=== PATIENT | female | born 1990 | race Caucasian/White ===

== ENCOUNTER 2016-06-23 20:10 | Emergency (ER) | payer MEDICAID ==
[2016-06-23 20:18] VITALS: BP 132/72
[2016-06-23] MEDS ORDERED: Ciprofloxacin 500 MG Tab PO ONE (21:26)
--- NOTE | 2016-06-23 21:30 | EDM.PDOC ---
ED HPI GENERAL MEDICAL PROBLEM - General Chief Complaint: General Stated Complaint: PAIN IN GLAND Time Seen by Provider: 06/23/16 20:14 Source of Information: Reports: Patient History Limitations: Reports: No Limitations - History of Present Illness INITIAL COMMENTS - FREE TEXT/NARRATIVE: 25 years old w f come to the ed with pain at her r flank and r lower abd. Pt had dysuria. Pt was seen for same last Monday foe same. CT abd/pelvis showed a mass at her r adrenal at that time. Pt will see a specialist on 07/05/2016 to evaluate the adrenal mass. UA and Blood work was not done last Monday. Pt denied or trauma. No N/V/D. pt stated she had Kidney stones in the past. Pt denied other acute medical issues. Onset: Gradual, Unknown/Unsure Onset Date: 06/17/16 Onset Time: 21:00 Duration: Day(s): Location: Reports: Abdomen Quality: Reports: Burning, Dull Severity: Moderate Improves with: Reports: None Worsens with: Reports: Other (urinating) Context: Reports: Other Associated Symptoms: Reports: No Other Symptoms Left Upper Mid-Anterior Abdomen Pain Score (Numeric/FACES): 8 - Related Data Allergies Allergy/AdvReac Type Severity Reaction Status Date / Time No Known Allergies Allergy Verified 11/29/13 19:32 Home Meds: Home Meds Haloperidol [Haloperidol] 1 mg PO BID 10/17/13 [History] Acetaminophen [Tylenol] 650 mg PO Q4H PRN 11/29/13 [History] Vit #76/Iron,Carb/Fa [Prenatabs Rx] 1 tab PO DAILY 11/29/13 [History] Ciprofloxacin HCl [Cipro] 500 mg PO BID #20 tablet 06/23/16 [Rx] Phenazopyridine HCl [Pyridium] 200 mg PO QAM #9 tablet 06/23/16 [Rx] Past Medical History - Past Health History Medical/Surgical History: Denies Medical/Surgical History Social & Family History - Tobacco Use Years of Tobacco use: 9 - Recreational Drug Use Recreational Drug Use: No ED ROS GENERAL - Review of Systems Review Of Systems: See Below Constitutional: Reports: No Symptoms HEENT: Reports: No Symptoms Respiratory: Reports: No Symptoms Cardiovascular: Reports: No Symptoms Endocrine: Reports: No Symptoms GI/Abdominal: Reports: Abdominal Pain : Reports: Dysuria Musculoskeletal: Reports: No Symptoms Skin: Reports: No Symptoms Neurological: Reports: No Symptoms Psychiatric: Reports: No Symptoms Hematologic/Lymphatic: Reports: No Symptoms Immunologic: Reports: No Symptoms ED EXAM, GENERAL - Physical Exam Exam: See Below Exam Limited By: No Limitations General Appearance: Alert, WD/WN, Mild Distress, Obese (morbid) Eye Exam: Bilateral Eye: Normal Inspection Ears: Normal External Exam Ear Exam: Bilateral Ear: Auricle Normal Nose: Normal Inspection, Normal Mucosa, No Blood Throat/Mouth: Normal Inspection Head: Atraumatic, Normocephalic Neck: Normal Inspection, Supple, Non-Tender, Full Range of Motion Respiratory/Chest: No Respiratory Distress, Lungs Clear, Normal Breath Sounds, No Accessory Muscle Use Cardiovascular: Normal Peripheral Pulses Peripheral Pulses: 1+: Femoral (L), Femoral (R) GI/Abdominal: Normal Bowel Sounds, Tender (suprapubic area) (Female) Exam: Deferred Rectal (Female) Exam: Deferred Back Exam: Normal Inspection, Full Range of Motion Extremities: Normal Inspection, Normal Range of Motion, Non-Tender, No Pedal Edema Neurological: Alert, Oriented, CN II-XII Intact, Normal Cognition, Normal Gait Psychiatric: Normal Affect, Normal Mood Skin Exam: Warm, Dry Lymphatic: No Adenopathy Course - Vital Signs Text/Narrative:: 25 years old w f , smoker, come to the ed with pain at her r flank and r lower abd. Pt had dysuria. Pt was seen for same last Monday foe same. CT abd/pelvis showed a mass at her r adrenal at that time. Pt will see a specialist on 2016. UA and Blood work was not done last Monday. Pt denied or trauma. No N/V/D. pt stated she had Kidneystones in the past. Pt denied other acute medical issues. PE: Morbid obese, suprapubic tenderness. Labs: UA pos for UTI. WBC was nl Impression: UTI with bladder spasm, can not r/o pyelonephritis Tx: Pyridium, Cipro Reexam: Improved, Pt was texting the entire time while she was in the ed. Plan: D/C with instructions Last Recorded V/S: Last Vital Signs Temp 37.0 C 06/23/16 20:14 Pulse 92 06/23/16 20:14 Resp 18 06/23/16 20:14 BP 132/72 06/23/16 20:14 Pulse Ox - Orders/Labs/Meds Orders: Active Orders 24 hr Category Date Time Status CULTURE URINE [RM] Stat Lab 06/23/16 21:00 Received Labs: Laboratory Tests 06/23/16 06/23/16 06/23/16 Range/Units 21:00 21:00 21:00 WBC 9.7 (4.5-12.0) X10-3/uL RBC 4.79 (3.23-5.20) x10(6)uL Hgb 12.9 (11.5-15.5) g/dL Hct 39.3 (30.0-51.3) % MCV 82.0 (80-96) fL MCH 27.0 L (27.7-33.6) pg MCHC 32.9 (32.2-35.4) g/dL RDW 14.3 (11.5-15.5) % Plt Count 247 (125-369) X10(3)uL MPV 10.0 (7.4-10.4) fL Neut % (Auto) 68.3 (46-82) % Lymph % (Auto) 24.2 (13-37) % [place] % (Auto) 5.7 (4-12) % Eos % (Auto) 1 (1.0-5.0) % Baso % (Auto) 1 (0-2) % Neut # (Auto) 6.7 (1.6-8.3) # Lymph # (Auto) 2.3 (0.6-5.0) # [place] # (Auto) 0.6 (0.0-1.3) # Eos # (Auto) 0.1 (0.0-0.8) # Baso # (Auto) 0.0 (0.0-0.2) # Sodium 139 (135-145) mmol/L Potassium 3.6 (3.5-5.3) mmol/L Chloride 109 (100-110) mmol/L Carbon Dioxide 21 L (23-29) mmol/L BUN 8 (5-20) mg/dL Creatinine 0.5 L (0.6-1.3) mg/dL Est Cr Clr Drug Dosing TNP Estimated GFR (MDRD) > 60 (>60) BUN/Creatinine Ratio 16.0 (9-20) Glucose 92 (80-116) mg/dL Calcium 8.7 (8.6-10.2) mg/dL Urine Color (YELLOW) Urine Appearance (CLEAR) Urine pH (5.0-6.5) Ur Specific [place] (1.010-1.025) Urine Protein (NEGATIVE) mg/dL Urine Glucose (UA) (NEGATIVE) mg/dL Urine Ketones (NEGATIVE) mg/dL Urine Occult Blood (NEGATIVE) Urine Nitrite (NEGATIVE) Urine Bilirubin (NEGATIVE) Urine Urobilinogen (NEGATIVE) mg/dL Ur Leukocyte Esterase (NEGATIVE) Urine RBC (0) Urine WBC (0) Ur Squamous Epith Cells (NS,R,O) Urine Bacteria (NS) Urine Mucus (NS) Urine HCG, Qual Negative (NEGATIVE) 06/23/16 Range/Units 21:00 WBC (4.5-12.0) X10-3/uL RBC (3.23-5.20) x10(6)uL Hgb (11.5-15.5) g/dL Hct (30.0-51.3) % MCV (80-96) fL MCH (27.7-33.6) pg MCHC (32.2-35.4) g/dL RDW (11.5-15.5) % Plt Count (125-369) X10(3)uL MPV (7.4-10.4) fL Neut % (Auto) (46-82) % Lymph % (Auto) (13-37) % [place] % (Auto) (4-12) % Eos % (Auto) (1.0-5.0) % Baso % (Auto) (0-2) % Neut # (Auto) (1.6-8.3) # Lymph # (Auto) (0.6-5.0) # [place] # (Auto) (0.0-1.3) # Eos # (Auto) (0.0-0.8) # Baso # (Auto) (0.0-0.2) # Sodium (135-145) mmol/L Potassium (3.5-5.3) mmol/L Chloride (100-110) mmol/L Carbon Dioxide (23-29) mmol/L BUN (5-20) mg/dL Creatinine (0.6-1.3) mg/dL Est Cr Clr Drug Dosing Estimated GFR (MDRD) (>60) BUN/Creatinine Ratio (9-20) Glucose (80-116) mg/dL Calcium (8.6-10.2) mg/dL Urine Color Yellow (YELLOW) Urine Appearance Slightly cloudy (CLEAR) Urine pH 5.0 (5.0-6.5) Ur Specific [place] 1.025 (1.010-1.025) Urine Protein Negative (NEGATIVE) mg/dL Urine Glucose (UA) Normal (NEGATIVE) mg/dL Urine Ketones Negative (NEGATIVE) mg/dL Urine Occult Blood Negative (NEGATIVE) Urine Nitrite Negative (NEGATIVE) Urine Bilirubin Small H (NEGATIVE) Urine Urobilinogen 1 H (NEGATIVE) mg/dL Ur Leukocyte Esterase Small H (NEGATIVE) Urine RBC 5-10 (0) Urine WBC 5-10 (0) Ur Squamous Epith Cells Moderate H (NS,R,O) Urine Bacteria Many H (NS) Urine Mucus Moderate H (NS) Urine HCG, Qual (NEGATIVE) Meds: Medications Discontinued Medications Generic Name Dose Route Start Last Admin Trade Name Lilly PRN Reason Stop Dose Admin Ciprofloxacin 500 mg 06/23/16 21:26 06/23/16 21:34 Ciprofloxacin Hcl PO 06/23/16 21:27 500 mg ONETIME ONE Administration Phenazopyridine HCl 200 mg 06/23/16 21:32 06/23/16 21:47 Urinary Pain Relief PO 06/23/16 21:33 200 mg ONETIME STA Administration Departure - Departure Time of Disposition: 21:57 Disposition: Home, Self-Care 01 Condition: good Clinical Impression: UTI (urinary tract infection) Qualifiers: Urinary tract infection type: acute cystitis Hematuria presence: without hematuria Qualified Code(s): N30.00 - Acute cystitis without hematuria - Discharge Information Prescriptions: Ciprofloxacin HCl [Cipro] 500 mg PO BID #20 tablet Phenazopyridine HCl [Pyridium] 200 mg PO QAM #9 tablet Instructions: Urinary Tract Infection, Adult, [id number] Referrals: PCP,None [Primary Care Provider] - Forms: ED Department Discharge Additional Instructions: Please take the meds as recommended, please quit tobacco use, please follow up, come back if worse. - My Orders Last 24 Hours: My Active Orders 06/23/16 21:00 CULTURE URINE [RM] Stat - Assessment/Plan Last 24 Hours: My Active Orders 06/23/16 21:00 CULTURE URINE [RM] Stat
[2016-06-23] MEDS ORDERED: Phenazopyridine 95 MG Tab PO STA (21:32)
== END 2016-06-23 22:25 | disposition home or self-care (01) ==
LOC: FB.ED 20:10
DX: N30.00 Acute cystitis without hematuria (principal); Z79.899 Other long term (current) drug therapy
CPT/HCPCS: 36415; 80048; 81001; 81025; 85025; 87086; 99284; A9270

== ENCOUNTER 2016-12-19 21:06 | Emergency (ER) | payer MEDICAID ==
[2016-12-19 21:12] VITALS: BP 120/88
--- NOTE | 2016-12-19 22:05 | EDM.PDOC ---
ED HPI GENERAL MEDICAL PROBLEM - General Chief Complaint: Genitourinary Problem Stated Complaint: BLADDER INFECTION Time Seen by Provider: 12/19/16 21:35 Source of Information: Reports: Patient History Limitations: Reports: No Limitations - History of Present Illness INITIAL COMMENTS - FREE TEXT/NARRATIVE: c/o UTI pt with h/o medullary sponge kidney and frequent UTIs and pyelo, also with kidney stones, last passed one 1w ago at [facility] 4d ago with dysuria and bladder pressure, dx UTI, tx with cephalexin x 10d, clinic called today to say UC showed E coli sensitive to cephalexin and to continue taking it dysuria gone, still with bladder pressure and occasional back pain boyfriend here, from [place], he reports that she has been more lethargic pt told RN that she uses meth but does not want boyfriend to know, pt has 3 children who stay elsewhere, pt not working, has no insurance no f/c/d Right Abdomen Pain Score (Numeric/FACES): 4 - Related Data Allergies Allergy/AdvReac Type Severity Reaction Status Date / Time No Known Allergies Allergy Verified 12/19/16 21:08 Past Medical History - Past Health History Medical/Surgical History: Denies Medical/Surgical History Social & Family History - Tobacco Use Smoking Status *Q: Current Every Day Smoker Years of Tobacco use: 11 Packs/Tins Daily: 1.5 - Caffeine Use Caffeine Use: Reports: None - Recreational Drug Use Recreational Drug Use: No Recreational Drug Type: Reports: Methamphetamine Other Recreational Drug Type: this AM at 0400 (inhaled) Recreational Drug Use Frequency: Weekly ED ROS GENERAL - Review of Systems Review Of Systems: See Below Constitutional: Reports: No Symptoms, Chills. Denies: Fever, Malaise HEENT: Reports: No Symptoms Respiratory: Reports: No Symptoms Cardiovascular: Reports: No Symptoms Endocrine: Reports: No Symptoms GI/Abdominal: Reports: Abdominal Pain : Reports: No Symptoms Musculoskeletal: Reports: Back Pain Skin: Reports: No Symptoms Neurological: Reports: No Symptoms Psychiatric: Reports: No Symptoms Hematologic/Lymphatic: Reports: No Symptoms Immunologic: Reports: No Symptoms ED EXAM, RENAL/ - Physical Exam Exam: See Below Exam Limited By: No Limitations General Appearance: Alert, WD/WN, No Apparent Distress Ears: Normal External Exam Nose: Normal Inspection, Normal Mucosa, No Blood Throat/Mouth: Normal Inspection, Normal Voice, No Airway Compromise Head: Atraumatic, Normocephalic Neck: Normal Inspection, Supple, Non-Tender, Full Range of Motion Respiratory/Chest: No Respiratory Distress Cardiovascular: Regular Rate, Rhythm, No Edema, No Gallop, No JVD, No Rub, Other (2/6 NAMAN at LSB, quiet precordium) GI/Abdominal: Normal Bowel Sounds, Soft, No Organomegaly, No Distention, Other ( mild tender across lower quadrants and a little at R flank, back no CVAT b/l) Back Exam: Normal Inspection, Full Range of Motion, NT Extremities: Normal Inspection, Normal Range of Motion, Non-Tender, No Pedal Edema Neurological: Alert, Oriented, CN II-XII Intact, No Motor/Sensory Deficits Psychiatric: Normal Affect, Normal Mood Skin Exam: Warm, Dry, Intact, Normal Color, No Rash Lymphatic: No Adenopathy Course - Vital Signs Last Recorded V/S: Last Vital Signs Temp 36.6 C 12/19/16 21:11 Pulse 71 12/19/16 21:11 Resp 18 12/19/16 21:11 BP 120/88 12/19/16 21:11 Pulse Ox 100 12/19/16 21:11 - Orders/Labs/Meds Orders: Active Orders 24 hr Category Date Time Status CULTURE URINE [RM] Stat Lab 12/19/16 22:56 Uncollected Labs: Laboratory Tests 12/19/16 12/19/16 12/19/16 Range/Units 22:00 22:00 22:12 WBC 10.8 (4.5-12.0) X10-3/uL RBC 4.74 (3.23-5.20) x10(6)uL Hgb 13.5 (11.5-15.5) g/dL Hct 40.6 (30.0-51.3) % MCV 85.7 (80-96) fL MCH 28.5 (27.7-33.6) pg MCHC 33.3 (32.2-35.4) g/dL RDW 15.6 H (11.5-15.5) % Plt Count 207 (125-369) X10(3)uL MPV 9.2 (7.4-10.4) fL Neut % (Auto) 79.9 (46-82) % Lymph % (Auto) 15.0 (13-37) % [place] % (Auto) 3.4 L (4-12) % Eos % (Auto) 1 (1.0-5.0) % Baso % (Auto) 1 (0-2) % Neut # (Auto) 8.6 H (1.6-8.3) # Lymph # (Auto) 1.6 (0.6-5.0) # [place] # (Auto) 0.4 (0.0-1.3) # Eos # (Auto) 0.1 (0.0-0.8) # Baso # (Auto) 0.1 (0.0-0.2) # Sodium 140 (135-145) mmol/L Potassium 3.3 L (3.5-5.3) mmol/L Chloride 105 (100-110) mmol/L Carbon Dioxide 28 (23-29) mmol/L BUN 5 (5-20) mg/dL Creatinine 0.6 (0.6-1.3) mg/dL Est Cr Clr Drug Dosing 112.38 mL/min Estimated GFR (MDRD) > 60 (>60) BUN/Creatinine Ratio 8.3 L (9-20) Glucose 90 (80-116) mg/dL Calcium 9.0 (8.6-10.2) mg/dL Total Bilirubin 0.7 (0.1-1.3) mg/dL AST 19 (5-27) IU/L ALT 25 D (14-26) IU/L Alkaline Phosphatase 76 (56-112) IU/L C-Reactive Protein 1.8 H (0.0-1.0) mg/dL Total Protein 7.3 (6.0-8.0) g/dL Albumin 3.8 (3.5-5.2) g/dL Globulin 3.5 g/dL Albumin/Globulin Ratio 1.1 Urine Color Yellow (YELLOW) Urine Appearance Cloudy (CLEAR) Urine pH 6.0 (5.0-6.5) Ur Specific [place] 1.020 (1.010-1.025) Urine Protein Negative (NEGATIVE) mg/dL Urine Glucose (UA) Normal (NEGATIVE) mg/dL Urine Ketones Negative (NEGATIVE) mg/dL Urine Occult Blood Moderate H (NEGATIVE) Urine Nitrite Negative (NEGATIVE) Urine Bilirubin Small H (NEGATIVE) Urine Urobilinogen 1 H (NEGATIVE) mg/dL Ur Leukocyte Esterase Negative (NEGATIVE) Urine RBC 5-10 (0) Urine WBC 0-5 (0) Ur Squamous Epith Cells Few H (NS,R,O) Urine Bacteria Many H (NS) Urine Mucus Moderate H (NS) - Re-Assessments/Exams Free Text/Narrative Re-Assessment/Exam: 12/19/16 23:49 records received from [facility] in [place], pt dx include ADHD , anxiety, borderline personality, intermittent explosive disorder as well as cannabis abuse and opioid dependence. Her med list there is cyclobenzaprine, Excedrin Migraine, MVI, ProAir HFA, APAP, Strattera 100 mg qd, Syimbicort 80/4.5 , venlafaxine, zolpidem. UA with >100 wbc, 0-2 rbc, many epi's, many bacteria. PE with diffuse abd tender with guarding and R CVAT. Dx Pyelo. UC with 20k E coli and normal commensal juliann present. E coli sensitive to all. Tx with cipro 500 mg bid. Labs here remarkable for CRP 1.8 and many bacteria in urine without WBC. It is not clear why the WBC have cleared but not the bacteria. Abd however is soft and back with no CVAT. Will continue the cipro for now. Repeat UC obtained. d/w pt Departure - Departure Time of Disposition: 23:54 Disposition: Home, Self-Care 01 Condition: Good Clinical Impression: UTI, Urinary tract infectious disease - Discharge Information Referrals: PCP,None [Primary Care Provider] - Forms: ED Department Discharge Additional Instructions: The white blood cells have cleared from the urine although the bacteria have not. Occasionally, a different antibiotic is needed although this will not be able to be determined until the repeat urine culture is completed in 3-4 days. See your physician in 4 days (Monday) to make a further recommendation in this regard. Return to ED if you feel worse. Call your Physician or Return to Emergency Department if: * Your condition worsens in any way. * You develop fever greater than 100.4. * You have vomitting that does not stop with medications. * You have pain that is not controlled with medications. - My Orders Last 24 Hours: My Active Orders 12/19/16 22:56 CULTURE URINE [RM] Stat - Assessment/Plan Last 24 Hours: My Active Orders 12/19/16 22:56 CULTURE URINE [] Stat
== END 2016-12-20 00:05 | disposition home or self-care (01) ==
LOC: FB.ED 21:06
DX: N39.0 Urinary tract infection, site not specified (principal); B96.20 Unspecified Escherichia coli [E. coli] as the cause of diseases classified elsewhere; F17.210 Nicotine dependence, cigarettes, uncomplicated
CPT/HCPCS: 36415; 80053; 81001; 85025; 86140; 87086; 99283

== ENCOUNTER 2016-12-30 15:15 | Emergency (ER) | payer OTHER ==
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
[2016-12-30 15:58] VITALS: BP 111/93
[2016-12-30 16:12] LABS: ACETAMINOPHEN < 10 ug/mL (10-30)
[2016-12-30] MEDS ORDERED: Doxycycline 100 MG Tab PO ONE (20:06)
[2016-12-30] MEDS ORDERED: Levonorgestrel 1.5 MG Tab PO ONE (20:09)
[2016-12-30] MEDS ORDERED: cefTRIAXone 250 MG Vial IM ONE (20:11)
[2016-12-30] MEDS ORDERED: metroNIDAZOLE 500 MG Tab PO ONE (20:12)
== END 2016-12-30 20:28 | disposition home or self-care (01) ==
LOC: FB.ED 15:15
DX: T74.21XA Adult sexual abuse, confirmed, initial encounter (principal); F17.210 Nicotine dependence, cigarettes, uncomplicated; J45.909 Unspecified asthma, uncomplicated; Z88.6 Allergy status to analgesic agent
CPT/HCPCS: 36415; 80048; 80305; 81025; 84443; 85025; 96372; 99283; A9270; G0480; J0696